=== PATIENT | female | born 1990 | race Caucasian/White ===

== ENCOUNTER 2016-12-20 17:46 | Emergency (ER) ==
--- NOTE | 2016-12-20 18:53 | PROVIDER DOCUMENTATION ---
HPI-EENT General <Laury Dcline Clare - Last Filed: 12/20/16 18:55> - General Source: patient - History of Present Illness-EENT General EENT Location: reports: ear (L) Quality of Pain: reports: aching Severity: reports: moderate Onset/Duration: reports: this morning Timing: reports: still present Prearrival Treatment: Initiated over the counter meds Associated Symptoms: denies: cough, ear drainage, facial pain/swelling, fever, sore throat Similar Symptoms Previously?: No - Ears Ear Problem Symptoms: reports: earache. denies: ringing in ears, roaring in ears, discharge Ear Problem Context: reports: none <Andrew Causey - Last Filed: 12/21/16 00:24> - General Chief Complaint: Earache Stated Complaint: EARACHE Time Seen by Provider: 12/20/16 17:55 Allergies/Adverse Reactions: Patient Allergies Allergy/AdvReac Type Severity Reaction Status Date / Time cephalexin monohydrate * AdvReac VOMITING Verified 12/20/16 17:53 [From Keflex] Latex, Natural Rubber AdvReac ITCHING Verified 12/20/16 17:53 Home Medications: Home Medication List Medication Instructions Recorded Confirmed Last Taken Type Azithromycin [Zithromax Z-Denny] 250 mg PO DIRECTED #1 pkg 12/20/16 Unknown Rx Ibuprofen [Motrin] 800 mg PO Q8H PRN PRN #20 tablet 12/20/16 Unknown Rx Sean/Polymyx B Sulf/Dexameth 5 ml OP TID #1 drops.susp 12/20/16 Unknown Rx [Wesgce-Bkcfj-Twjotoxe Eye Drop] - History of Present Illness-EENT General Nature of Presenting Problem: 26 y/o WF presents to the ED with left ear pain going into her jaw that began this morning. Pt states she took some tylenol pm about an 1 hour ago and it has not helped. (Andrew Causey) Review of Systems - Adult - REVIEW OF SYSTEMS - ADULT Constitutional: denies: chills, fever Eyes: reports: no symptoms reported Ears, Nose, Mouth & Throat: reports: ear pain. denies: sinus problem, throat pain Cardiovascular: denies: chest pain, edema Respiratory: denies: cough, shortness of breath, wheezing Gastrointestinal: reports: no symptoms reported Genitourinary: reports: no symptoms reported Musculoskeletal: reports: no symptoms reported Integumentary: reports: no symptoms reported Neurological: reports: no symptoms reported Psychiatric: reports: no symptoms reported Endocrine: reports: no symptoms reported Hematologic/Lymphatic: reports: no symptoms reported Allergic/Immunologic: reports: no symptoms reported All Other Systems: Reviewed and Negative <Andrew Causey - Last Filed: 12/21/16 00:24> Past History - Adult - PAST MEDICAL HISTORY-ADULT Review of Records: reports: Old Records Reviewed, Nursing Assessment Review, Medications Reviewed Major Childhood Illnesses: reports: denies history, Hepatitis A Cardiovascular: reports: denies history Respiratory: reports: denies history Gastrointestinal: reports: denies history - SOCIAL HISTORY Smoking: non-smoker Living Situation: family Occupation: stay at home mom <Andrew Causey - Last Filed: 12/21/16 00:24> Physical Exam- EENT - Physical Exam EENT Initial Vital Signs Reviewed: Yes General Appearance: appears well, alert, no apparent distress Eye Exam: bilateral eye: normal inspection, PERRL, EOMI Ear Exam: right ear: TM normal, left ear: TM dull, TM red, TM bulging Nasal Exam: normal inspection. negative: active bleeding Throat Exam: normal mouth inspection, pharynx normal Neck: non-tender, full range of motion, supple, normal inspection Respiratory: lungs clear, normal breath sounds, no pleuratic chest pain, no respiratory distress, no accessory muscle use Cardiovascular: normal peripheral pulses, regular rate, rhythm Abdominal Exam: normal bowel sounds, non tender, soft Extremity: normal range of motion, non-tender, normal gait, normal inspection Integumentary: normal color, normal turgor, warm/dry Neurologic: grossly normal, no motor/sensory deficits Psych/Mental Status: normal mood/affect, normal thought content, normal thought process, oriented x 3 <Andrew Causey - Last Filed: 12/21/16 00:24> Progress <Arline Dc - Last Filed: 12/20/16 18:55> <Andrew Causey - Last Filed: 12/21/16 00:24> - PLAN OF CARE/RESULTS Progress/Plan/Lab Results: Vital Signs Temp Pulse Resp BP Pulse Ox 12/20/16 17:50 97.4 F L 91 H 18 126/75 99 cephalexin monohydrate * [From Keflex] Adverse Reaction (Verified 12/20/16 17:53 ) VOMITING Latex, Natural Rubber Adverse Reaction (Verified 12/20/16 17:53) ITCHING No Home Medications 12/20/16 Discussed plan of care and pt verbalized in agreement. (Andrew Causey) Departure - Departure Time of Disposition Order: 18:56 Certified Medical Emergency: Emergent <Arline Dc - Last Filed: 12/20/16 18:55> - Departure Time of Disposition Order: 19:45 Certified Medical Emergency: Emergent <Andrew Causey - Last Filed: 12/21/16 00:24> - Departure DIAGNOSIS: Otalgia, left ear Left otitis media Qualifiers: Otitis media type: unspecified Chronicity: unspecified Qualified Code(s): H66.92 - Otitis media, unspecified, left ear Disposition: HOME 01 Condition: Stable Additional Instructions: ED Follow Up Instructions: You have been treated by a care provider in the Emergency Department. These instructions are being provided to you so you can have an understanding of how to care for yourself upon discharge. Upon discharge from the Emergency Department, you are responsible for making arrangements for follow-up care by a physician of your choice. Take all prescribed medications as directed. Return to the Emergency Department immediately for any new or worsening symptoms. You may call the Physician Referral phone number at [phone] to obtain a list of Physicians who are taking new patients. Prescriptions: Ibuprofen [Motrin] 800 mg PO Q8H PRN PRN #20 tablet PRN Reason: Pain Sean/Polymyx B Sulf/Dexameth [Fyftoh-Crknn-Jovbwyza Eye Drop] 5 ml OP TID #1 drops.susp Azithromycin [Zithromax Z-Denny] 250 mg PO DIRECTED #1 pkg Referrals: Rafael Adrian MD [STAFF PHYSICIAN] - Forms: Return to School/Parent Work Instructions: Otitis Media, Adult, Xeek-ys-Eces, Ibuprofen tablets and capsules , Azithromycin tablets, Dexamethasone; Neomycin; Polymyxin B ophthalmic suspension, Earache Attestation - Physician/ JAYLON Attestation Patient care was provided by Advanced Practice Provider:: Yes Advanced Practice Provider:: Arline Dc Advanced Practice Provider documentation review:: The Mid-level provider documentation, treatment plan and medical decision making was reviewed by the physician who agrees with all treatment and medical decision making by the MLP. <Arline Dc - Last Filed: 12/20/16 18:55> - Scribe Verification/Attestation Scribe:: Andrew Causey Acting as Scribe for:: Arline Dc Scribe documention review:: This chart was documented by a scribe and accurately reflects the service the provider performed and the decisions made by the provider. <Andrew Causey - Last Filed: 12/21/16 00:24> Physician Attestation
[2016-12-20] MEDS ORDERED: NORCO-7.5 PO ONE (19:04)
[2016-12-20 19:40] VITALS: BP 114/74
== END 2016-12-20 19:39 | disposition home or self-care (01) ==
LOC: P.ED 17:46
DX: H66.92 Otitis media, unspecified, left ear (principal); H92.02 Otalgia, left ear; R68.84 Jaw pain
CPT/HCPCS: 99282